=== PATIENT | female | born 1990 | race Caucasian/White ===

== ENCOUNTER 2018-12-26 11:00 | Inpatient (IN) | payer MEDICAID ==
[2018-12-26] MEDS ORDERED: Ondansetron 4 MG/2 ML SDV IVPUSH PRN ×2 (12:42→13:58)
[2018-12-26] MEDS ORDERED: Sodium Chloride 0.9% 10 ML Syringe FLUSH PRN (12:42)
[2018-12-26] MEDS ORDERED: Nalbuphine 20 MG/ML 1 ML Syringe IVPUSH PRN (12:42)
--- NOTE | 2018-12-26 12:44 | PCM.LDHP ---
L&D History of Present Illness - General Date of Service: 12/26/18 Admit Problem/Dx: Patient Status Order with Admit Dx/Problem 12/26/18 11:46 Patient Status [ADT] Routine 12/26/18 12:42 Patient Status [ADT] Routine Admission Diagnosis/Problem Admission Diagnosis/Problem Source of Information: Patient History Limitations: Reports: No Limitations - History of Present Illness Introduction:: Patient is a 28 y/o at 37 0/7 wks who presented today for concerns of labor. No bakari fluid leaking, but notes more of a discharge - Related Data Allergies/Adverse Reactions: Allergies Allergy/AdvReac Type Severity Reaction Status Date / Time coconut Allergy Itching Verified 12/24/18 09:57 Home Medications: Home Meds . 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: : 1 Para: 0 LMP (Approximate): - Past Surgical History HEENT Surgical History: Reports: Myringotomy w Tube(s) Social & Family History - Family History Family Medical History: Noncontributory - Tobacco Use Smoking Status *Q: Never Smoker - Caffeine Use Caffeine Use: Reports: Soda - Alcohol Use Alcohol Use History: No - Recreational Drug Use Recreational Drug Use: No H&P Review of Systems - Review of Systems: Review Of Systems: See Below General: Reports: No Symptoms Pulmonary: Reports: No Symptoms Cardiovascular: Reports: No Symptoms Gastrointestinal: Reports: Abdominal Pain (contractions ) Genitourinary: Reports: No Symptoms Musculoskeletal: Reports: No Symptoms Psychiatric: Reports: No Symptoms Neurological: Reports: No Symptoms L&D Exam - Exam Exam: See Below - Vital Signs Weight: 92.85 kg - OB Specific Contraction Intensity: Moderate Movement: Active Heart Tones: Present Heart Tones per Min: 145 Heart Rate (FHR) Variability: Moderate (6-25 bmp) Presentation: Vertex - Duggan Score Duggan Score Cervix Position: Posterior Duggan Score Consistency: Soft Duggan Score Effacement: >80% Duggan Score Dilation: 3-4 cm Duggan Score Infant's Station: -1 ,0 Duggan Score Total: 9 - Exam General: Alert, Oriented, Cooperative Lungs: Clear to Auscultation, Normal Respiratory Effort Cardiovascular: Regular Rate, Regular Rhythm GI/Abdominal Exam: Soft, Non-Tender Genitourinary: Normal external exam Extremities: Normal Inspection Skin: Warm, Dry, Intact - Patient Data Lab Results Last 24 hrs: Laboratory Results - last 24 hr 12/26/18 Range/Units 11:45 Membrane Rupture Positive H - Problem List (1) 37 weeks gestation of SNOMED Code(s): 33270059 ICD Code: Z3A.37 - 37 WEEKS GESTATION OF Status: Acute Current Visit: Yes (2) Rh negative state in antepartum period SNOMED Code(s): 829338520 ICD Code: O26.899 - OTH RELATED CONDITIONS, UNSPECIFIED TRIMESTER; Z67.91 - UNSPECIFIED BLOOD TYPE, RH NEGATIVE Status: Acute Current Visit: Yes (3) SROM (spontaneous rupture of membranes) SNOMED Code(s): 313053506 ICD Code: AUW8786 - Status: Acute Current Visit: Yes (4) Tobacco smoking affecting SNOMED Code(s): 217386527, 291512662, 280902434 ICD Code: O99.330 - SMOKING (TOBACCO) COMPLICATING , UNSP TRIMESTER Status: Acute Current Visit: Yes Qualifiers: Trimester: third trimester Qualified Code(s): O99.333 - Smoking (tobacco) complicating , third trimester Problem List Initiated/Reviewed/Updated: Yes Orders Last 24hrs: Active Orders 24 hr Category Date Time Status Patient Status [ADT] Routine ADT 12/26/18 11:46 Active Patient Status [ADT] Routine ADT 12/26/18 12:42 Ordered Activity as Tolerated [RC] PFP Care 12/26/18 12:42 Ordered Communication Order [RC] ASDIRECTED Care 12/26/18 12:42 Ordered Heart Tones [RC] ASDIRECTED Care 12/26/18 12:42 Ordered Non Stress Test [RC] PER UNIT ROUTINE Care 12/26/18 11:46 Active Notify Provider [RC] PFP Care 12/26/18 12:42 Ordered Notify Provider [RC] PRN Care 12/26/18 12:42 Ordered Peripheral IV Care [RC] . DIRECTED Care 12/26/18 12:42 Ordered Vital Signs [RC] PER UNIT ROUTINE Care 12/26/18 11:46 Active Vital Signs [RC] PER UNIT ROUTINE Care 12/26/18 12:42 Ordered Regular Diet [DIET] Diet 12/26/18 Lunch Ordered CBC W/O DIFF,HEMOGRAM [HEME] Routine Lab 12/26/18 12:42 Ordered RAPID PLASMA REAGIN,RPR [CHEM] Routine Lab 12/26/18 12:42 Ordered TYPE AND SCREEN [BBK] Routine Lab 12/26/18 12:42 Ordered Lactated Ringers [Ringers, Lactated] 1,000 ml Med 12/26/18 12:45 Ordered IV ASDIRECTED Nalbuphine [Nubain] Med 12/26/18 12:42 Ordered 10 mg IVPUSH Q2H PRN Ondansetron [Zofran] Med 12/26/18 12:42 Ordered 4 mg IVPUSH Q4H PRN Oxytocin/Lactated Ringers [Pitocin in LR 10 Units/1,000 Med 12/26/18 12:45 Ordered ML] 10 unit in 1,000 ml IV .CONTINUOUS Sodium Chloride 0.9% [Saline Flush] Med 12/26/18 12:42 Ordered 10 ml FLUSH ASDIRECTED PRN Electronic Heart Tones Ext w TOCO [WOMSER] Oth 12/26/18 12:42 Ordered Routine Electronic Heart Tones Internal [WOMSER] Per Unit Oth 12/26/18 12:42 Ordered Routine Peripheral IV Insertion Adult [OM.PC] Routine Oth 12/26/18 12:42 Ordered Resuscitation Status Routine Resus Stat 12/26/18 11:46 Ordered Assessment/Plan Comment:: 28 y/o at 37 0/7 wks presented with concerns of contractions. Amnisure done and positive. * Labs ordered * GBS negative , no need for antibiotics * Pain management per patient preference * Anticipate * Rh negative, will assess baby blood type following delivery
[2018-12-26] MEDS ORDERED: Oxytocin/Lactated Ringers 10 UNIT/1,000 ML BAG IV SCH ×2 (12:45→16:45)
[2018-12-26] MEDS ORDERED: fentaNYL 100 MCG/2 ML SDV EPIDUR PRN (13:58)
[2018-12-26] MEDS ORDERED: diphenhydrAMINE 50 MG/ML SDV IVPUSH PRN (13:58)
[2018-12-26] MEDS: Lactated Ringers 1,000 ML IV SCH ×3 (14:11→16:46)
[2018-12-26] MEDS: fentaNYL/Bupivacaine-NS 2 MCG/ML-0.125%/PF 100 ML Bag EP SCH ×2 (14:36→23:01)
--- NOTE | 2018-12-26 15:04 | PCM.PREANE ---
Preanesthetic Assessment - Procedure Proposed Procedure: JOSE R - Anesthesia/Transfusion/Family Hx Anesthesia History: Prior Anesthesia Without Reaction Family History of Anesthesia Reaction: No Transfusion History: No Prior Transfusion(s) - Review of Systems General: No Symptoms Pulmonary: Other (Asthma- uses albuterol inhaler daily) Cardiovascular: No Symptoms Gastrointestinal: No Symptoms Neurological: Other (Bipolar) Other: Reports: None - Physical Assessment NPO Status Date: 12/26/18 NPO Status Time: 14:00 Pulse: 105 O2 Sat by Pulse Oximetry: 98 Respiratory Rate: 18 Blood Pressure: 133/80 Temperature: 36.9 C Height: 1.6 m Weight: 92.85 kg ASA Class: 2 Mental Status: Alert & Oriented x3 Dentition: Reports: Normal Dentition Thyro-Mental Finger Breadths: 3 Mouth Opening Finger Breadths: 3 ROM/Head Extension: Full Lungs: Clear to Auscultation, Normal Respiratory Effort Cardiovascular: Regular Rate, Regular Rhythm - Lab Values: Laboratory Last Values WBC 17.43 K/mm3 (3.98-10.04) H 12/26/18 13:10 RBC 4.12 M/mm3 (3.98-5.22) 12/26/18 13:10 Hgb 12.5 gm/L (11.2-15.7) 12/26/18 13:10 Hct 36.3 % (34.1-44.9) 12/26/18 13:10 MCV 88.1 fl (79.4-94.8) 12/26/18 13:10 MCH 30.3 pg (25.6-32.2) 12/26/18 13:10 MCHC 34.4 g/dl (32.2-35.5) 12/26/18 13:10 RDW Std Deviation 44.3 fL (36.4-46.3) 12/26/18 13:10 Plt Count 228 K/mm3 (182-369) 12/26/18 13:10 MPV 9.8 fl (9.4-12.3) 12/26/18 13:10 Membrane Rupture Positive H 12/26/18 11:45 RPR Non-reactive (NONREACTIVE) 12/26/18 13:10 - Allergies Allergies/Adverse Reactions: Allergies Allergy/AdvReac Type Severity Reaction Status Date / Time coconut Allergy Itching Verified 12/24/18 09:57 - Blood Blood Available: No Product(s) Available: None - Anesthesia Plan Pre-Op Medication Ordered: None - Acknowledgements Anesthesia Type Planned: Epidural Pt an Appropriate Candidate for the Planned Anesthesia: Yes Alternatives and Risks of Anesthesia Discussed w Pt/Guardian: Yes Pt/Guardian Understands and Agrees with Anesthesia Plan: Yes PreAnesthesia Questionnaire Gastrointestinal History: Reports: GERD 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 [No Known Home Meds] 07/05/18 [History] - CURRENT (IN HOUSE) MEDS Current Meds: Current Medications Diphenhydramine HCl (Benadryl) 25 mg IVPUSH Q6H PRN PRN Reason: Pruritis Fentanyl (Sublimaze) 100 mcg EPIDUR Q3H PRN PRN Reason: Pain Last Admin: 12/26/18 14:36 Dose: 100 mcg Fentanyl/Bupivacaine HCl (Jwoktfcg-Enjmd-Wc 2 Mcg/Ml-0.125%) 100 ml EP ASDIRECTED [facility] Last Admin: 12/26/18 14:36 Dose: 100 ml Lactated Ringer's (Ringers, Lactated) 1,000 mls @ 100 mls/hr IV ASDIRECTED GAYLE Last Admin: 12/26/18 14:34 Dose: 999 mls/hr Oxytocin/Lactated Ringer's (Pitocin In Lr 10 Units/1,000 Ml) 10 unit in 1,000 mls @ 500 mls/hr IV .CONTINUOUS GAYLE Nalbuphine HCl (Nubain) 10 mg IVPUSH Q2H PRN PRN Reason: pain Ondansetron HCl (Zofran) 4 mg IVPUSH Q4H PRN PRN Reason: Nausea/Vomiting Ondansetron HCl (Zofran) 4 mg IVPUSH ONETIME PRN PRN Reason: Nausea/Vomiting Sodium Chloride (Saline Flush) 10 ml FLUSH ASDIRECTED PRN PRN Reason: Keep Vein Open
[2018-12-26] MEDS ORDERED: Sodium Chloride 0.9% 10 ML SDV FLUSH PRN (16:44)
[2018-12-26] MEDS ORDERED: Nicotine 21 MG/24 Hr Patch TRDERM SCH (17:30)
[2018-12-26] MEDS: Calcium Carbonate 500 MG Tab.Chew PO PRN ×2 (19:21→22:42)
[2018-12-26] MEDS ORDERED: Pantoprazole 40 MG Tab.CR PO SCH (21:00)
--- NOTE | 2018-12-26 21:30 | PCM.PNLD ---
Labor Progress Note - VS & Meds Vital Signs: Last Vital Signs Temp 36.9 C 12/26/18 15:12 Pulse 105 H 12/26/18 15:12 Resp 18 12/26/18 15:12 BP 133/80 12/26/18 15:12 Pulse Ox 98 12/26/18 15:12 Active Medications: Current Medications Calcium Carbonate/Glycine (Tums) 1,000 mg PO Q2HR PRN PRN Reason: Indigestion Last Admin: 12/26/18 19:21 Dose: 1,000 mg Diphenhydramine HCl (Benadryl) 25 mg IVPUSH Q6H PRN PRN Reason: Pruritis Fentanyl (Sublimaze) 100 mcg EPIDUR Q3H PRN PRN Reason: Pain Last Admin: 12/26/18 14:36 Dose: 100 mcg Fentanyl/Bupivacaine HCl (Nzqzpwqf-Fiwew-Uj 2 Mcg/Ml-0.125%) 100 ml EP ASDIRECTED GAYLE Last Admin: 12/26/18 14:36 Dose: 100 ml Lactated Ringer's (Ringers, Lactated) 1,000 mls @ 100 mls/hr IV ASDIRECTED GAYLE Last Admin: 12/26/18 16:46 Dose: 250 mls/hr Oxytocin/Lactated Ringer's (Pitocin In Lr 10 Units/1,000 Ml) 10 unit in 1,000 mls @ 500 mls/hr IV .CONTINUOUS GAYLE Oxytocin/Lactated Ringer's (Pitocin In Lr 10 Units/1,000 Ml) 10 unit in 1,000 mls @ 12 mls/hr IV TITRATE GAYLE; Protocol Last Titration: 12/26/18 21:17 Dose: 9 munits/min, 54 mls/hr Miscellaneous Information (Remove Patch) 1 ea TRDERM DAILY GAYLE Nalbuphine HCl (Nubain) 10 mg IVPUSH Q2H PRN PRN Reason: pain Nicotine (Habitrol) 21 mg TRDERM DAILY [facility] Last Admin: 12/26/18 18:00 Dose: Not Given Ondansetron HCl (Zofran) 4 mg IVPUSH Q4H PRN PRN Reason: Nausea/Vomiting Ondansetron HCl (Zofran) 4 mg IVPUSH ONETIME PRN PRN Reason: Nausea/Vomiting Pantoprazole Sodium (Protonix) 40 mg PO BEDTIME GAYLE Last Admin: 12/26/18 21:04 Dose: 40 mg Sodium Chloride (Normal Saline) 10 ml FLUSH ASDIRECTED PRN PRN Reason: Keep Vein Open Discontinued Medications Sodium Chloride (Saline Flush) 10 ml FLUSH ASDIRECTED PRN PRN Reason: Keep Vein Open - Uterine Contractions Uterine Monitoring Mode: External [place] Contraction Frequency (min): 2-3 Contraction Duration (sec): 60-75 Contraction Intensity: Moderate to Strong Uterine Resting Tone: Soft - Monitoring Monitor Mode: Doppler/Auscultation Heart Rate (FHR) Baseline: 125 Heart Rate (FHR) Per Doppler: 125 Heart Rate (FHR) Variability: Moderate (6-25 bmp) Accelerations: Present, 15x15 Decelerations: Variable, Intermittent (<50% x 20 min) Strip Review: Category II - Vaginal Exam Dilation (cm): 5 Effacement (Percent): 100 Station: 1 Cervical Position: Anterior Sterile Vaginal Exam Performed By: Ervin Armstrong - Labor Progress (Free Text) Labor Progress: Patient making progress at this time with cervical dilation of 5/100/+1/soft/ anterior. Continue Pitocin for augmentation of labor Continue to monitor vitals Patient doing well with epidural in place Anticipate vaginal delivery unless otherwise indicated Ervin Armstrong M.D. 9:30 PM 12/26/2018
[2018-12-26] MEDS ORDERED: Lidocaine 1.5% with EPINEPHrine 1:200,000 5 ML Amp ONE (22:00)
[2018-12-26] MEDS ORDERED: Bupivacaine 0.25% 10 ML SDV ONE (22:00)
[2018-12-27] MEDS ORDERED: Lidocaine 1% 50 ML MDV ONE (00:54)
[2018-12-27] MEDS ORDERED: Lidocaine 1% 10 ML MDV INJECT ONE (01:53)
[2018-12-27] MEDS ORDERED: Docusate Sodium 100 MG Cap PO PRN (02:27)
[2018-12-27] MEDS ORDERED: Acetaminophen 325 MG Tab PO PRN (02:27)
[2018-12-27] MEDS ORDERED: Lanolin 100% Cream 7 GM Tube TOP PRN (02:27)
[2018-12-27] MEDS ORDERED: Hydrocortisone Acetate 25 MG Supp RECTAL PRN (02:27)
--- NOTE | 2018-12-27 02:28 | PCM.DEL ---
L & D Note - General Info Date of Service: 12/27/18 Mother's Due Date: 01/16/19 - Delivery Note Labor: Spontaneous, Augmented by Oxytocin Cervical Ripening Method: Oxytocin Delivery Outcome: Livebirth Delivery Method: Spontaneous Vaginal Delivery-Single Delivery Mode: Vacuum Extraction (mushroom type) Presentation: Right Occiput Anterior (DALIA) Nuchal Cord: None Anesthesia Type: Epidural, Local Anesthetic: Lidocaine (Xylocaine) 1% Plain Local Anesthetic Volume: Other (20 mL) Amniotic Fluid Description: Clear Episiotomy Type: None Laceration: 1st Degree (bilateral labial repaired with 4-0 Vicryl), 2nd Degree ( midline perineal repaired with 3-0 Vicryl) Placenta: Intact, Spontaneous Cord: 3 Vessels Estimated Blood Loss: 400 Resuscitation Needed: Yes : Suctioned, Bulb Syringe, Stimulated, Warmed, [place] Used, Warmer Used Provider: Ervin Armstrong Score 1 min: 7 Score 5 min: 7 Second Stage Interventions: Reports: Encouragement Given, Pushing Effectively, Pushing, Pulls Own Legs Back Delivery Comments (Free Text/Narrative):: Stage I: Ananya Alfred was admitted for spontaneous rupture membranes. She was uncertain of exact time of rupture membranes but thinks that it may have started in the evening of 12/25/2018. She reports clear fluid with the rupture membranes. On admission her cervix was dilated to 3-4 cm. She was GBS negative. She was started on Pitocin for augmentation of labor. She was given an epidural for anesthesia. She progressed to complete and pushing. The epidural stopped working with error message that there was a distal occlusion in the epidural line. Patient did not have very good pain control is results with the epidural. Stage II: Patient was pushing for approximately 20 minutes when the began to develop tachycardia. Mother reported that she was becoming exhausted and reported difficulty with continuous pushing. She requested assistance with the delivery. exam was performed and infant's head was at +3 station in DALIA position. Infant position was amenable for vacuum- assisted vaginal delivery. Verbal discussion with the patient regarding use of vacuum assistance for delivery including risks associated with a vacuum delivery. Patient gave verbal consent for vacuum-assisted vaginal delivery. A mushroom type Kiwi extractor was applied over the vertex and care was taken to ensure that there was no vaginal tissue incorporated between the vacuum and head. Vacuum pressure was applied to 500 mmHg and with the next contraction over the course of 3 pushes the head was brought to +5 station. There was a pop off of the vacuum extractor once the head reached this station. Attempt was made without vacuum extractor for delivery of the head. Mother pushed for 2 pushes with minimal progress. The vacuum extractor was applied a second time and with the next maternal push the head was able to be delivered in DALIA position. The vacuum extractor was removed and the remainder the body was delivered. The vacuum extractor was applied for a total of 2 minutes and had one pop off. On 12/27/2018 she had a normal vaginal delivery of a live female infant at 0053. Apgars of 7 & 7. Weight of 2940 g (6 lbs 7.7 oz). Length of 20 inches. There was no nuchal cord. Infant was delivered in DALIA position. The cord was doubly clamped and cut by father of the . was placed on mother's abdomen initially and then taken to the warmer for further resuscitation shortly after delivery. Stage III: She had a spontaneous delivery of an intact placenta in Garcia presentation. Three vessel cord. She was given pitocin and fundal massage. She had a second-degree midline perineal laceration was repaired with 3-0 Vicryl. She had bilateral first-degree labial lacerations that were repaired with 4-0 Vicryl. She had 1 vaginal mucosal tear under the bladder that was bleeding and was repaired with 4-0 Vicryl and hemostatic after placement of the suture. Mom and baby were stable to recovery. EBL of 400 mL. Ervin Armstrong MD 2:16 AM 12/27/2018 Vacuum Extractor Progress Note - Alternative Labor Strategies Considered Alternative Labor Strategies Considered:: Reports: Yes Strategies Considered:: Reports: Contraction Intensity Adequate Indications Considered:: Reports: Yes Indications:: Reports: Shortening of 2nd Stage for Maternal Benefit, Suspicion of Immediate or Potential Compromise ( tachycardia) Time Out:: Reports: Yes - Patient Prepared Patient Prepared:: Reports: Yes Informed Consent:: Reports: Verbal Risks: Reports: Yes Risks Include:: Reports: Laceration, Shoulder Dystocia, Maternal Injury Anesthesia/Analgesia Adequate:: Reports: Yes - Probability of Success High Probability of Success:: Reports: Yes Weight Estimated:: Reports: AGA Patient Diabetic:: Reports: No Pelvis Adequate:: Reports: Yes Position:: DALIA Asynclitic:: Reports: No Station:: +3 - Application Time Maximum Application Time & Number of Pop-Offs Predetermined:: Reports: Yes Maximum Pressure Maintained in Green [place] (cm Hg):: 50 Total Application Time (min): *max=20min: 2 Number of Times Cup Disengaged:: 1 Type of Vacuum Used:: Reports: Cup: Mushroom type Vacuum Extraction: Successful - Exit Strategy Exit strategy available:: Reports: Yes and resuscitation teams readily available:: Reports: Yes - General Info Date of Service: 12/27/18 - Patient Data Vitals - Most Recent: Last Vital Signs Temp 36.9 C 12/26/18 15:12 Pulse 105 H 12/26/18 15:12 Resp 18 12/26/18 15:12 BP 133/80 12/26/18 15:12 Pulse Ox 98 12/26/18 15:12 Weight - Most Recent: 92.85 kg I&O - Last 24 Hours: Intake & Output 12/26/18 12/26/18 12/27/18 14:59 22:59 06:59 Intake Total 1999 1999 Output Total 625 325 Balance 1375 1675 Lab Results Last 24 Hours: Laboratory Results - last 24 hr 12/26/18 12/26/18 12/26/18 Range/Units 11:45 13:10 13:10 WBC 17.43 H (3.98-10.04) K/mm3 RBC 4.12 (3.98-5.22) M/mm3 Hgb 12.5 (11.2-15.7) gm/L Hct 36.3 (34.1-44.9) % MCV 88.1 (79.4-94.8) fl MCH 30.3 (25.6-32.2) pg MCHC 34.4 (32.2-35.5) g/dl RDW Std Deviation 44.3 (36.4-46.3) fL Plt Count 228 (182-369) K/mm3 MPV 9.8 (9.4-12.3) fl Membrane Rupture Positive H RPR Non-reactive (NONREACTIVE) Blood Type Gel Antibody Screen 12/26/18 Range/Units 13:10 WBC (3.98-10.04) K/mm3 RBC (3.98-5.22) M/mm3 Hgb (11.2-15.7) gm/L Hct (34.1-44.9) % MCV (79.4-94.8) fl MCH (25.6-32.2) pg MCHC (32.2-35.5) g/dl RDW Std Deviation (36.4-46.3) fL Plt Count (182-369) K/mm3 MPV (9.4-12.3) fl Membrane Rupture RPR (NONREACTIVE) Blood Type A NEGATIVE Gel Antibody Screen Negative Med Orders - Current: Current Medications Calcium Carbonate/Glycine (Tums) 1,000 mg PO Q2HR PRN PRN Reason: Indigestion Last Admin: 12/26/18 22:42 Dose: 1,000 mg Diphenhydramine HCl (Benadryl) 25 mg IVPUSH Q6H PRN PRN Reason: Pruritis Fentanyl (Sublimaze) 100 mcg EPIDUR Q3H PRN PRN Reason: Pain Last Admin: 12/26/18 14:36 Dose: 100 mcg Fentanyl/Bupivacaine HCl (Ivsyajhl-Caydi-Rp 2 Mcg/Ml-0.125%) 100 ml EP ASDIRECTED GAYLE Last Admin: 12/26/18 23:01 Dose: 100 ml Lactated Ringer's (Ringers, Lactated) 1,000 mls @ 100 mls/hr IV ASDIRECTED GAYLE Last Admin: 12/26/18 16:46 Dose: 250 mls/hr Oxytocin/Lactated Ringer's (Pitocin In Lr 10 Units/1,000 Ml) 10 unit in 1,000 mls @ 500 mls/hr IV .CONTINUOUS GAYLE Last Admin: 12/27/18 02:01 Dose: 500 mls/hr Oxytocin/Lactated Ringer's (Pitocin In Lr 10 Units/1,000 Ml) 10 unit in 1,000 mls @ 12 mls/hr IV TITRATE GAYLE; Protocol Last Titration: 12/27/18 00:54 Dose: 500 mls/hr Miscellaneous Information (Remove Patch) 1 ea TRDERM DAILY GAYLE Nalbuphine HCl (Nubain) 10 mg IVPUSH Q2H PRN PRN Reason: pain Nicotine (Habitrol) 21 mg TRDERM DAILY GAYLE Last Admin: 12/26/18 18:00 Dose: Not Given Ondansetron HCl (Zofran) 4 mg IVPUSH Q4H PRN PRN Reason: Nausea/Vomiting Ondansetron HCl (Zofran) 4 mg IVPUSH ONETIME PRN PRN Reason: Nausea/Vomiting Pantoprazole Sodium (Protonix) 40 mg PO BEDTIME GAYLE Last Admin: 12/26/18 21:04 Dose: 40 mg Sodium Chloride (Normal Saline) 10 ml FLUSH ASDIRECTED PRN PRN Reason: Keep Vein Open Discontinued Medications Lidocaine HCl (Xylocaine 1%) Confirm Administered Dose 50 ml .ROUTE .STK-MED ONE Stop: 12/27/18 00:55 Last Admin: 12/27/18 02:02 Dose: Not Given Lidocaine HCl (Xylocaine 1%) 10 ml INJECT ONETIME ONE Stop: 12/27/18 01:54 Last Admin: 12/27/18 02:06 Dose: 10 ml Sodium Chloride (Saline Flush) 10 ml FLUSH ASDIRECTED PRN PRN Reason: Keep Vein Open - Problem List & Annotations (1) Vaginal delivery SNOMED Code(s): 728833094 Code(s): O80 - ENCOUNTER FOR FULL-TERM UNCOMPLICATED DELIVERY Status: Acute Current Visit: Yes (2) Vacuum extractor delivery, delivered SNOMED Code(s): 472692006 Code(s): O66.5 - ATTEMPTED APPLICATION OF VACUUM EXTRACTOR AND FORCEPS Status: Acute Current Visit: Yes (3) Second degree perineal laceration during delivery SNOMED Code(s): 8893382 Code(s): O70.1 - SECOND DEGREE PERINEAL LACERATION DURING DELIVERY Status: Acute Current Visit: Yes (4) Obstetric labial laceration, delivered, current hospitalization SNOMED Code(s): 661992818, 607645140, 663842562 Code(s): O70.0 - FIRST DEGREE PERINEAL LACERATION DURING DELIVERY Status: Acute Current Visit: Yes (5) 37 weeks gestation of SNOMED Code(s): 08927522 Code(s): Z3A.37 - 37 WEEKS GESTATION OF Status: Acute Current Visit: Yes (6) Rh negative state in antepartum period SNOMED Code(s): 044052466 Code(s): O26.899 - OTH RELATED CONDITIONS, UNSPECIFIED TRIMESTER; Z67.91 - UNSPECIFIED BLOOD TYPE, RH NEGATIVE Status: Acute Current Visit: Yes (7) SROM (spontaneous rupture of membranes) SNOMED Code(s): 268254231 Code(s): OZF0657 - Status: Acute Current Visit: Yes (8) Tobacco smoking affecting SNOMED Code(s): 008429060, 887879054, 564696752 Code(s): O99.330 - SMOKING (TOBACCO) COMPLICATING , UNSP TRIMESTER Status: Acute Current Visit: Yes Qualifiers: Trimester: third trimester Qualified Code(s): O99.333 - Smoking (tobacco) complicating , third trimester - Problem List Review Problem List Initiated/Reviewed/Updated: Yes - My Orders Last 24 Hours: My Active Orders 12/26/18 18:03 Calcium Carbonate [Tums] 1,000 mg PO Q2HR PRN 12/26/18 21:00 Pantoprazole [ProTONIX] 40 mg PO BEDTIME 12/27/18 02:17 Patient Status Manage Transfer [TRANSFER] Routine - Plan Plan:: Admit to inpatient following vacuum-assisted vaginal delivery Continue Pitocin per unit protocol following delivery of placenta and lactated Ringer's until tolerating regular diet Regular diet Vitals per unit routine Ibuprofen and Tylenol for pain control Assist with breast-feeding as needed Continue to monitor lochia Anticipate discharge home on day #2 Ervin Armstrong MD 2:34 AM 12/27/2018
[2018-12-27] MEDS ORDERED: Oxytocin/Lactated Ringers 10 UNIT/1,000 ML BAG IV SCH (02:30)
[2018-12-27] MEDS: Witch Hazel Medicated Pads 100/Jar TOP PRN (02:35)
[2018-12-27] MEDS: Benzocaine/Menthol 20%-0.5% Spray 56 GM Canister TOP PRN (02:35)
[2018-12-27] MEDS: Ibuprofen 600 MG Tab PO PRN ×3 (02:35→20:16)
[2018-12-27] MEDS ORDERED: Remove Patch*NICOTINE TRDERM SCH (09:00)
[2018-12-27] MEDS: Nicotine 21 MG/24 Hr Patch TRDERM SCH ×2 (09:21→20:16)
[2018-12-27] MEDS: Prenatal Multivitamin with Calcium/Folic Acid/Iron Tab PO SCH (09:21)
--- NOTE | 2018-12-27 17:28 | PCM48HPAN ---
Post Anesthesia Note - EVALUATION WITHIN 48HRS OF ANESTHETIC Vital Signs in Normal Range: Yes Patient Participated in Evaluation: Yes Respiratory Function Stable: Yes Airway Patent: Yes Cardiovascular Function Stable: Yes Hydration Status Stable: Yes Pain Control Satisfactory: Yes Nausea and Vomiting Control Satisfactory: Yes Mental Status Recovered: Yes - COMMENTS/OBSERVATIONS Free Text/Narrative:: Patient denies any anesthetic complications.
[2018-12-28] MEDS ORDERED: Ibuprofen 600 MG Tab ONE (06:50)
[2018-12-28] MEDS ORDERED: Remove Patch*NICOTINE TRDERM SCH (09:00)
--- NOTE | 2018-12-28 10:19 | PCM.SN ---
- Free Text/Narrative Note: Post Progress Note PPD # 1 Subjective: Doing well overall. Ambulating without difficulty. Lochia minimal. Voiding without difficulty. Tolerating regular diet without nausea or vomiting. Pain controlled with oral medications. Breast-feeding with minimal difficulty. Objective: Vitals: Vital Signs - 24 hr 12/27/18 20:03 Temperature 36.7 C Pulse, 94 Peripheral Respiratory 18 Rate Blood Pressure 116/75 O2 Sat by Pulse 99 Oximetry Physical Exam General: Alert and oriented, no acute distress Lungs: Clear to auscultation bilaterally Heart: Regular rate and rhythm Abdomen: Soft, minimal appropriate tenderness, non-distended, fundus midline, nontender, and at the umbilicus Extremities: Trace edema in bilateral lower extremities to mid shins ASSESSMENT: 28-year-old female G1 P 1001 s/p vacuum-assisted vaginal delivery PPD #1, complicated by uncertain time of spontaneous rupture membranes with possible prolongation of rupture membranes, Rh- status in and tobacco use PLAN: Doing well Breast-feeding with minimal difficulty. Assist as needed Lochia minimal. Continue to monitor for appropriate lochia. Patient with A- blood type and infant with A- blood type. RhoGAM not indicated. Continue routine care Anticipate discharge home today Ervin Armstrong MD 10:19 AM 12/28/2018
--- NOTE | 2018-12-28 10:21 | PCM.DCSUM1 ---
Discharge Summary - Hospital Course Free Text/Narrative:: - General Info Date of Service: 12/27/18 Mother's Due Date: 01/16/19 - Delivery Note Labor: Spontaneous, Augmented by Oxytocin Cervical Ripening Method: Oxytocin Delivery Outcome: Livebirth Infant Delivery Method: Spontaneous Vaginal Delivery-Single Delivery Mode: Vacuum Extraction (mushroom type) Presentation: Right Occiput Anterior (DALIA) Nuchal Cord: None Anesthesia Type: Epidural, Local Anesthetic: Lidocaine (Xylocaine) 1% Plain Local Anesthetic Volume: Other (20 mL) Amniotic Fluid Description: Clear Episiotomy Type: None Laceration: 1st Degree (bilateral labial repaired with 4-0 Vicryl), 2nd Degree ( midline perineal repaired with 3-0 Vicryl) Placenta: Intact, Spontaneous Cord: 3 Vessels Estimated Blood Loss: 400 Resuscitation Needed: Yes [place]: Suctioned, Bulb Syringe, Stimulated, Warmed, Wol[place] Used, Warmer Used Provider: Ervin Armstrong Score 1 min: 7 Score 5 min: 7 Second Stage Interventions: Reports: Encouragement Given, Pushing Effectively, Pushing, Pulls Own Legs Back Delivery Comments (Free Text/Narrative):: Stage I: Ananya Alfred was admitted for spontaneous rupture membranes. She was uncertain of exact time of rupture membranes but thinks that it may have started in the evening of 12/25/2018. She reports clear fluid with the rupture membranes. On admission her cervix was dilated to 3-4 cm. She was GBS negative. She was started on Pitocin for augmentation of labor. She was given an epidural for anesthesia. She progressed to complete and pushing. The epidural stopped working with error message that there was a distal occlusion in the epidural line. Patient did not have very good pain control is results with the epidural. Stage II: Patient was pushing for approximately 20 minutes when the began to develop tachycardia. Mother reported that she was becoming exhausted and reported difficulty with continuous pushing. She requested assistance with the delivery. exam was performed and infant's head was at +3 station in DALIA position. Infant position was amenable for vacuum- assisted vaginal delivery. Verbal discussion with the patient regarding use of vacuum assistance for delivery including risks associated with a vacuum delivery. Patient gave verbal consent for vacuum-assisted vaginal delivery. A mushroom type Kiwi extractor was applied over the vertex and care was taken to ensure that there was no vaginal tissue incorporated between the vacuum and head. Vacuum pressure was applied to 500 mmHg and with the next contraction over the course of 3 pushes the head was brought to +5 station. There was a pop off of the vacuum extractor once the head reached this station. Attempt was made without vacuum extractor for delivery of the head. Mother pushed for 2 pushes with minimal progress. The vacuum extractor was applied a second time and with the next maternal push the head was able to be delivered in DALIA position. The vacuum extractor was removed and the remainder the body was delivered. The vacuum extractor was applied for a total of 2 minutes and had one pop off. On 12/27/2018 she had a normal vaginal delivery of a live female infant at 0053. Apgars of 7 & 7. Weight of 2940 g (6 lbs 7.7 oz). Length of 20 inches. There was no nuchal cord. Infant was delivered in DALIA position. The cord was doubly clamped and cut by father of the infant. was placed on mother's abdomen initially and then taken to the warmer for further resuscitation shortly after delivery. Stage III: She had a spontaneous delivery of an intact placenta in [place] presentation. Three vessel cord. She was given pitocin and fundal massage. She had a second-degree midline perineal laceration was repaired with 3-0 Vicryl. She had bilateral first-degree labial lacerations that were repaired with 4-0 Vicryl. She had 1 vaginal mucosal tear under the bladder that was bleeding and was repaired with 4-0 Vicryl and hemostatic after placement of the suture. Mom and baby were stable to recovery. EBL of 400 mL. HPI Initial Comments: - General Info Date of Service: 12/27/18 Mother's Due Date: 01/16/19 - Delivery Note Labor: Spontaneous, Augmented by Oxytocin Cervical Ripening Method: Oxytocin Delivery Outcome: Livebirth Infant Delivery Method: Spontaneous Vaginal Delivery-Single Infant Delivery Mode: Vacuum Extraction (mushroom type) Presentation: Right Occiput Anterior (DALIA) Nuchal Cord: None Anesthesia Type: Epidural, Local Anesthetic: Lidocaine (Xylocaine) 1% Plain Local Anesthetic Volume: Other (20 mL) Amniotic Fluid Description: Clear Episiotomy Type: None Laceration: 1st Degree (bilateral labial repaired with 4-0 Vicryl), 2nd Degree ( midline perineal repaired with 3-0 Vicryl) Placenta: Intact, Spontaneous Cord: 3 Vessels Estimated Blood Loss: 400 Resuscitation Needed: Yes : Suctioned, Bulb Syringe, Stimulated, Warmed, [place] Used, Warmer Used Provider: Ervin Armstrong Score 1 min: 7 Score 5 min: 7 Second Stage Interventions: Reports: Encouragement Given, Pushing Effectively, Pushing, Pulls Own Legs Back Delivery Comments (Free Text/Narrative):: Stage I: Ananya Alfred was admitted for spontaneous rupture membranes. She was uncertain of exact time of rupture membranes but thinks that it may have started in the evening of 12/25/2018. She reports clear fluid with the rupture membranes. On admission her cervix was dilated to 3-4 cm. She was GBS negative. She was started on Pitocin for augmentation of labor. She was given an epidural for anesthesia. She progressed to complete and pushing. The epidural stopped working with error message that there was a distal occlusion in the epidural line. Patient did not have very good pain control is results with the epidural. Stage II: Patient was pushing for approximately 20 minutes when the infant began to develop tachycardia. Mother reported that she was becoming exhausted and reported difficulty with continuous pushing. She requested assistance with the delivery. exam was performed and infant's head was at +3 station in DALIA position. position was amenable for vacuum- assisted vaginal delivery. Verbal discussion with the patient regarding use of vacuum assistance for delivery including risks associated with a vacuum delivery. Patient gave verbal consent for vacuum-assisted vaginal delivery. A mushroom type Kiwi extractor was applied over the vertex and care was taken to ensure that there was no vaginal tissue incorporated between the vacuum and head. Vacuum pressure was applied to 500 mmHg and with the next contraction over the course of 3 pushes the head was brought to +5 station. There was a pop off of the vacuum extractor once the head reached this station. Attempt was made without vacuum extractor for delivery of the head. Mother pushed for 2 pushes with minimal progress. The vacuum extractor was applied a second time and with the next maternal push the head was able to be delivered in DALIA position. The vacuum extractor was removed and the remainder the body was delivered. The vacuum extractor was applied for a total of 2 minutes and had one pop off. On 12/27/2018 she had a normal vaginal delivery of a live female at 0053. Apgars of 7 & 7. Weight of 2940 g (6 lbs 7.7 oz). Length of 20 inches. There was no nuchal cord. was delivered in DALIA position. The cord was doubly clamped and cut by father of the infant. Infant was placed on mother's abdomen initially and then taken to the warmer for further resuscitation shortly after delivery. Stage III: She had a spontaneous delivery of an intact placenta in [place] presentation. Three vessel cord. She was given pitocin and fundal massage. She had a second-degree midline perineal laceration was repaired with 3-0 Vicryl. She had bilateral first-degree labial lacerations that were repaired with 4-0 Vicryl. She had 1 vaginal mucosal tear under the bladder that was bleeding and was repaired with 4-0 Vicryl and hemostatic after placement of the suture. Mom and baby were stable to recovery. EBL of 400 mL. Brief History: - General Info. Date of Service: 12/27/18. Mother's Due Date: 01/16/19. - Delivery Note. Labor: Spontaneous, Augmented by Oxytocin. Cervical Ripening Method: Oxytocin. Delivery Outcome: Livebirth. Delivery Method: Spontaneous Vaginal Delivery-Single. Infant Delivery Mode: Vacuum Extraction (mushroom type). Presentation: Right Occiput Anterior ( DALIA). Nuchal Cord: None. Anesthesia Type: Epidural, Local. Anesthetic: Lidocaine (Xylocaine) 1% Plain. Local Anesthetic Volume: Other (20 mL). Amniotic Fluid Description: Clear. Episiotomy Type: None. Laceration: 1st Degree (bilateral labial repaired with 4-0 Vicryl), 2nd Degree (midline perineal repaired with 3-0 Vicryl). Placenta: Intact, Spontaneous. Cord: 3 Vessels. Estimated Blood Loss: 400. Resuscitation Needed: Yes. [place]: Suctioned, Bulb Syringe, Stimulated, Warmed, [place] Used, Warmer Used. Provider: Ervin Armstrong. Score 1 min: 7. Score 5 min: 7. Second Stage Interventions: Reports: Encouragement Given, Pushing Effectively , Pushing, Pulls Own Legs Back. Delivery Comments (Free Text/Narrative):: Stage I: Ananya Alfred was admitted for spontaneous rupture membranes. She was uncertain of exact time of rupture membranes but thinks that it may have started in the evening of 12/25/2018. She reports clear fluid with the rupture membranes. On admission her cervix was dilated to 3-4 cm. She was GBS negative. She was started on Pitocin for augmentation of labor. She was given an epidural for anesthesia. She progressed to complete and pushing. The epidural stopped working with error message that there was a distal occlusion in the epidural line. Patient did not have very good pain control is results with the epidural. Stage II: Patient was pushing for approximately 20 minutes when the began to develop tachycardia. Mother reported that she was becoming exhausted and reported difficulty with continuous pushing. She requested assistance with the delivery. exam was performed and infant's head was at +3 station in DALIA position. position was amenable for vacuum -assisted vaginal delivery. Verbal discussion with the patient regarding use of vacuum assistance for delivery including risks associated with a vacuum delivery. Patient gave verbal consent for vacuum-assisted vaginal delivery. A mushroom type Kiwi extractor was applied over the vertex and care was taken to ensure that there was no vaginal tissue incorporated between the vacuum and head. Vacuum pressure was applied to 500 mmHg and with the next contraction over the course of 3 pushes the head was brought to +5 station. There was a pop off of the vacuum extractor once the head reached this station. Attempt was made without vacuum extractor for delivery of the head. Mother pushed for 2 pushes with minimal progress. The vacuum extractor was applied a second time and with the next maternal push the head was able to be delivered in DALIA position. The vacuum extractor was removed and the remainder the body was delivered. The vacuum extractor was applied for a total of 2 minutes and had one pop off. On 12/27/2018 she had a normal vaginal delivery of a live female at 0053. Apgars of 7 & 7. Weight of 2940 g (6 lbs 7.7 oz). Length of 20 inches. There was no nuchal cord. was delivered in DALIA position. The cord was doubly clamped and cut by father of the infant. Infant was placed on mother's abdomen initially and then taken to the warmer for further resuscitation shortly after delivery. Stage III : She had a spontaneous delivery of an intact placenta in [place] presentation. Three vessel cord. She was given pitocin and fundal massage. She had a second- degree midline perineal laceration was repaired with 3-0 Vicryl. She had bilateral first-degree labial lacerations that were repaired with 4-0 Vicryl. She had 1 vaginal mucosal tear under the bladder that was bleeding and was repaired with 4-0 Vicryl and hemostatic after placement of the suture. Mom and baby were stable to recovery. EBL of 400 mL. Diagnosis: Stroke: No - Discharge Data Discharge Date: 12/28/18 Discharge Disposition: Home, Self-Care 01 Condition: Good - Discharge Diagnosis/Problem(s) (1) Vaginal delivery SNOMED Code(s): 651365405 ICD Code: O80 - ENCOUNTER FOR FULL-TERM UNCOMPLICATED DELIVERY Status: Acute Current Visit: Yes (2) Vacuum extractor delivery, delivered SNOMED Code(s): 142900247 ICD Code: O66.5 - ATTEMPTED APPLICATION OF VACUUM EXTRACTOR AND FORCEPS Status: Acute Current Visit: Yes (3) Second degree perineal laceration during delivery SNOMED Code(s): 7113379 ICD Code: O70.1 - SECOND DEGREE PERINEAL LACERATION DURING DELIVERY Status : Acute Current Visit: Yes (4) Obstetric labial laceration, delivered, current hospitalization SNOMED Code(s): 091984338, 370834606, 696453624 ICD Code: O70.0 - FIRST DEGREE PERINEAL LACERATION DURING DELIVERY Status: Acute Current Visit: Yes (5) 37 weeks gestation of SNOMED Code(s): 69738143 ICD Code: Z3A.37 - 37 WEEKS GESTATION OF Status: Acute Current Visit: Yes (6) Rh negative state in antepartum period SNOMED Code(s): 725395952 ICD Code: O26.899 - OTH RELATED CONDITIONS, UNSPECIFIED TRIMESTER; Z67.91 - UNSPECIFIED BLOOD TYPE, RH NEGATIVE Status: Acute Current Visit: Yes (7) SROM (spontaneous rupture of membranes) SNOMED Code(s): 022004089 ICD Code: XIT4322 - Status: Acute Current Visit: Yes (8) Tobacco smoking affecting SNOMED Code(s): 566812488, 779280268, 935651280 ICD Code: O99.330 - SMOKING (TOBACCO) COMPLICATING , UNSP TRIMESTER Status: Acute Current Visit: Yes Qualifiers: Trimester: third trimester Qualified Code(s): O99.333 - Smoking (tobacco) complicating , third trimester - Patient Summary/Data Operative Procedure(s) Performed: Vacuum-assisted vaginal delivery Complications: Vacuum-assisted vaginal delivery and suspected prolonged rupture membranes with unknown timing of initial rupture Consults: None Hospital Course: Ananya Alfred was admitted for spontaneous rupture membranes. She had suspected prolongation of rupture membranes with uncertain time and had clear fluid. On admission her cervix was dilated to 3-4 cm. She was GBS negative. She was given pitocin for augmentation. She was given an epidural for anesthesia. She progressed to complete and began pushing. On 12/27/2018 she had a vacuum-assisted vaginal delivery of a live female infant at 0053. Apgars of 7 and 7. Weight of 2940 g (6 pounds 7.7 ounces). Please see delivery note for full details of vacuum-assisted vaginal delivery. Her course was uneventful. Her pain was well controlled and she had minimal lochia. She was ambulating, tolerating a regular diet and voiding normally. She was breast- feeding with minimal difficulty. She was afebrile and her hematocrit was 31.8 on day #0 approximately 8 hours after delivery. She desired to be discharged home on the morning of PPD #1. Her blood type is A- and infant has A - blood type. RhoGAM not indicated due to Rh- status of infant. - Patient Instructions Diet: Regular Diet as Tolerated Activity: Apply Ice, As Tolerated Activity, Other: Nothing in the vagina for 6 weeks Driving: May Drive Today Showering/Bathing: May Shower Notify Provider of: Fever, Increased Pain, Swelling and Redness, Drainage, Nausea and/or Vomiting Other/Special Instructions: Please contact your physician's office if you have heavy vaginal bleeding enough to soak a pad in less than an hour for several hours. Monitor for any signs of an infection in the breasts with severe pain or redness of the breast. - Discharge Plan *PRESCRIPTION DRUG MONITORING PROGRAM REVIEWED*: Not Applicable *COPY OF PRESCRIPTION DRUG MONITORING REPORT IN PATIENT LOTUS: Not Applicable Home Medications: Home Meds Albuterol [Proventil HFA] 1 puff INH DAILY PRN 12/26/18 [History] OIV110/Iron Fumarate/FA/DSS [ 19 Tablet] 1 tab PO DAILY 12/26/18 [ History] Acetaminophen [Tylenol] 650 mg PO Q6H PRN tablet 12/28/18 [Rx] Benzocaine/Menthol [Dermoplast Pain Relief [place]] 1 spray TOP ASDIRECTED PRN canister 12/28/18 [Rx] Docusate Sodium [Colace] 100 mg PO BID PRN cap 12/28/18 [Rx] Hydrocortisone Acetate [Anucort-HC] 25 mg RECTAL BID PRN supp 12/28/18 [Rx] Ibuprofen [Motrin] 600 mg PO Q6H PRN tablet 12/28/18 [Rx] Lanolin [Lansinoh HPA] 1 applic TOP ASDIRECTED PRN tube 12/28/18 [Rx] Witch Mary [Tucks] 1 pad TOP ASDIRECTED PRN pad 12/28/18 [Rx] Patient Handouts: Vaginal Delivery, Care After, Care of a Perineal Tear Referrals: Annalisa Durand MD [Primary Care Provider] - (Follow-up in 3-6 weeks for routine visit or earlier as needed.) - Discharge Summary/Plan Comment DC Time >30 min.: No - Patient Data Vitals - Most Recent: Last Vital Signs Temp 36.7 C 12/27/18 20:03 Pulse 94 12/27/18 20:03 Resp 18 12/27/18 20:03 BP 116/75 12/27/18 20:03 Pulse Ox 99 12/27/18 20:03 Weight - Most Recent: 92.85 kg Lab Results - Last 24 hrs: Laboratory Results - last 24 hr 12/27/18 Range/Units 10:10 WBC 19.09 H (3.98-10.04) K/mm3 RBC 3.57 L (3.98-5.22) M/mm3 Hgb 10.8 L (11.2-15.7) gm/L Hct 31.8 L (34.1-44.9) % MCV 89.1 (79.4-94.8) fl MCH 30.3 (25.6-32.2) pg MCHC 34.0 (32.2-35.5) g/dl RDW Std Deviation 44.2 (36.4-46.3) fL Plt Count 204 (182-369) K/mm3 MPV 10.2 (9.4-12.3) fl Neut % (Auto) 78.5 H (34.0-71.1) % Lymph % (Auto) 13.3 L (19.3-51.7) % [place] % (Auto) 7.5 (4.7-12.5) % Eos % (Auto) 0.2 L (0.7-5.8) Baso % (Auto) 0.1 (0.1-1.2) % Neut # (Auto) 14.99 H (1.56-6.13) K/mm3 Lymph # (Auto) 2.53 (1.18-3.74) K/mm3 [place] # (Auto) 1.44 H (0.24-0.36) K/mm3 Eos # (Auto) 0.03 L (0.04-0.36) K/mm3 Baso # (Auto) 0.02 (0.01-0.08) K/mm3 Med Orders - Current: Current Medications Acetaminophen (Tylenol) 650 mg PO Q6H PRN PRN Reason: mild pain or fever Last Admin: 12/27/18 13:25 Dose: 650 mg Benzocaine/Menthol (Dermoplast Pain Relief [place]) 0 gm TOP ASDIRECTED PRN PRN Reason: Perineal Comfort Measure Last Admin: 12/27/18 02:35 Dose: 1 applic Docusate Sodium (Colace) 100 mg PO BID PRN PRN Reason: Constipation Emollient Ointment (Lansinoh Hpa) 0 gm TOP ASDIRECTED PRN PRN Reason: Sore Nipples Hydrocortisone Acetate (Anucort-Hc) 25 mg RECTAL BID PRN PRN Reason: Hemorrhoid pain Oxytocin/Lactated Ringer's (Pitocin In Lr 10 Units/1,000 Ml) 10 unit in 1,000 mls @ 100 mls/hr IV TITRATE GAYLE; Protocol Ibuprofen (Motrin) 600 mg PO Q6H PRN PRN Reason: Mild pain or fever Last Admin: 12/27/18 20:16 Dose: 600 mg Miscellaneous Information (Remove Patch) 1 ea TRDERM DAILY [facility] Nicotine (Habitrol) 21 mg TRDERM DAILY [facility] Last Admin: 12/27/18 09:21 Dose: Not Given Nicotine (Habitrol) 21 mg TRDERM DAILY [facility] Last Admin: 12/27/18 20:16 Dose: 21 mg Prenat Multivit/[place]/Iron/Folic Ac ( Plus Iron) 1 each PO DAILY [facility] Last Admin: 12/27/18 09:21 Dose: 1 each [place] (Tucks) 1 pad TOP ASDIRECTED PRN PRN Reason: Hemorrhoid pain Last Admin: 12/27/18 02:35 Dose: 1 applic Discontinued Medications Calcium Carbonate/Glycine (Tums) 1,000 mg PO Q2HR PRN PRN Reason: Indigestion Last Admin: 12/26/18 22:42 Dose: 1,000 mg Diphenhydramine HCl (Benadryl) 25 mg IVPUSH Q6H PRN PRN Reason: Pruritis Fentanyl (Sublimaze) 100 mcg EPIDUR Q3H PRN PRN Reason: Pain Last Admin: 12/26/18 14:36 Dose: 100 mcg Fentanyl/Bupivacaine HCl (Lxwwlcqa-Ejsud-Ep 2 Mcg/Ml-0.125%) 100 ml EP ASDIRECTED GAYLE Last Admin: 12/26/18 23:01 Dose: 100 ml Lactated Ringer's (Ringers, Lactated) 1,000 mls @ 100 mls/hr IV ASDIRECTED GAYLE Last Admin: 12/26/18 16:46 Dose: 250 mls/hr Oxytocin/Lactated Ringer's (Pitocin In Lr 10 Units/1,000 Ml) 10 unit in 1,000 mls @ 500 mls/hr IV .CONTINUOUS GAYLE Last Admin: 12/27/18 02:01 Dose: 500 mls/hr Oxytocin/Lactated Ringer's (Pitocin In Lr 10 Units/1,000 Ml) 10 unit in 1,000 mls @ 12 mls/hr IV TITRATE GAYLE; Protocol Last Titration: 12/27/18 00:54 Dose: 500 mls/hr Lidocaine HCl (Xylocaine 1%) Confirm Administered Dose 50 ml .ROUTE .STK-MED ONE Stop: 12/27/18 00:55 Last Admin: 12/27/18 02:02 Dose: Not Given Lidocaine HCl (Xylocaine 1%) 10 ml INJECT ONETIME ONE Stop: 12/27/18 01:54 Last Admin: 12/27/18 02:06 Dose: 10 ml Miscellaneous Information (Remove Patch) 1 ea TRDERM DAILY [facility] Nalbuphine HCl (Nubain) 10 mg IVPUSH Q2H PRN PRN Reason: pain Nicotine (Habitrol) 21 mg TRDERM DAILY [facility] Last Admin: 12/26/18 18:00 Dose: Not Given Ondansetron HCl (Zofran) 4 mg IVPUSH Q4H PRN PRN Reason: Nausea/Vomiting Ondansetron HCl (Zofran) 4 mg IVPUSH ONETIME PRN PRN Reason: Nausea/Vomiting Pantoprazole Sodium (Protonix) 40 mg PO BEDTIME [facility] Last Admin: 12/26/18 21:04 Dose: 40 mg Sodium Chloride (Saline Flush) 10 ml FLUSH ASDIRECTED PRN PRN Reason: Keep Vein Open Sodium Chloride (Normal Saline) 10 ml FLUSH ASDIRECTED PRN PRN Reason: Keep Vein Open
[2018-12-28] MEDS: Benzocaine/Menthol 20%-0.5% Spray 56 GM Canister TOP PRN (10:47)
[2018-12-28] MEDS: Witch Hazel Medicated Pads 100/Jar TOP PRN (10:48)
[2018-12-28] MEDS: Prenatal Multivitamin with Calcium/Folic Acid/Iron Tab PO SCH (12:19)
[2018-12-28] MEDS: Nicotine 21 MG/24 Hr Patch TRDERM SCH ×2 (12:20)
== END 2018-12-28 12:15 | disposition home or self-care (01) | DRG 807 ==
LOC: JD.OBCHECK 11:00 → JD.OB 11:01 → JD.OBCHECK 12:42 → OBSVTOIN 12-27 00:53 → JD.OB 12-27 00:54
PROVIDERS: ADMIT Obstetrics & Gynecology; ATTEND Obstetrics & Gynecology
PROC: 10D07Z6 Extraction of Products of Conception, Vacuum, Via Natural or Artificial Opening (ICD-10-PCS; principal; 2018-12-27)
PROC: 0KQM0ZZ Repair Perineum Muscle, Open Approach (ICD-10-PCS; 2018-12-27)
PROC: 0UQMXZZ Repair Vulva, External Approach (ICD-10-PCS; 2018-12-27)
PROC: 00HU33Z Insertion of Infusion Device into Spinal Canal, Percutaneous Approach (ICD-10-PCS; 2018-12-27)
PROC: 3E0R3BZ Introduction of Anesthetic Agent into Spinal Canal, Percutaneous Approach (ICD-10-PCS; 2018-12-27)
DX: O42.92 Full-term premature rupture of membranes, unspecified as to length of time between rupture and onset of labor (principal); Z37.0 Single live birth; Z3A.37 37 weeks gestation of pregnancy; O70.0 First degree perineal laceration during delivery; O70.1 Second degree perineal laceration during delivery; O99.334 Smoking (tobacco) complicating childbirth
CPT/HCPCS: 36415; 51702; 59025; 59409; 84112; 85025; 85027; 86592; 86850; 86900; 86901; A9270-GY; J2001; J2590; J3010; J3490; J7120